=== PATIENT | male | born 1960 | race African-American/Black ===

== ENCOUNTER 2016-07-31 01:48 | Emergency (ER) | payer SELFPAY ==
[2016-07-31] MEDS ORDERED: predniSONE 20 MG TAB ONE (02:11)
--- NOTE | 2016-07-31 02:28 | ERRECORD ---
[facility] EMERGENCY RECORD HPI RASH (02:11 JLOY) CHIEF COMPLAINT: Patient presents for evaluation of pruritis, Patient presents for evaluation of rash, Patient presents for evaluation of Pt with itching rash x1 week. started on his hands and forearms but spread to upper arms, back and chest. No other symptoms. Happened after being in a grassy field but no exposures. HISTORIAN: History provided by patient. LOCATION: Symptoms are generalized. QUALITY: Rash described as itchy, Rash described as macular, Rash described as papular, Rash described as raised, Rash described as red. TIME COURSE: Gradual onset of symptoms, Symptoms are worsening. ASSOCIATED WITH: No associated chills, No associated extremity swelling, No associated fever, No associated oral lesions, No associated pain, No associated shortness of breath, No associated scaling, No associated upper respiratory infection. EXACERBATED BY: Patient's condition exacerbated by nothing. RELIEVED BY: Patient's condition relieved by nothing. ROS (02:12 JLOY) CONSTITUTIONAL: Historian denies chills, denies fever. ENT: Historian denies rhinorrhea, denies sore throat. RESPIRATORY: Historian denies cough, denies shortness of breath. GI: Historian denies nausea, denies vomiting. MUSCULOSKELETAL: Historian denies arthralgias, denies myalgias. SKIN: Historian reports pruritis, reports rash. NEUROLOGIC: Historian denies dizziness, denies headache. PAST MEDICAL HISTORY MEDICAL HISTORY: Flu vaccine not up to date, Tetanus not up to date, Past medical history includes history of diabetes, Type II. (:57 KASA) MALE SURGICAL HISTORY: Patient has no surgical history. (:57 KASA) PSYCHIATRIC HISTORY: No previous psychiatric history. (01:57 KASA) SOCIAL HISTORY: Patient drinks socially, every week, Patient denies drug use, Patient currently uses tobacco, smokes cigarettes, daily, Patient has smoked for 30 years, Patient smokes 1/2 packs per day, Lives at home, with family. (:57 KASA) NOTES: Nursing records reviewed, Agree with nursing records. (02:14 JLOY) KNOWN ALLERGIES No recorded allergies CURRENT MEDICATIONS &a-1R&a+25V*p+0X*i3038O*c202B*c15G*c2P*p-0X&a-25V&a+1R Name: Ryan Bobby : 1960 M55 MedRec: [id number] AcctNum: [id number] Prepared: Brynn Jul 31, 2016 02:23 by Interface Page 1 of 2 pMD [facility] EMERGENCY RECORD No recorded medications VITAL SIGNS (01:52 KASA) VITAL SIGNS: BP: 132/82, Pulse: 109, Resp: 20, Temp: 98.6 (Oral), Pain: 6 (Burning), O2 sat: 96 on Room Air, Time: 07/31/2016 01:52. PHYSICAL EXAM (02:12 JL) CONSTITUTIONAL: Vital signs reviewed, Patient appears non toxic, Patient alert and oriented to person, place and time. EYES: Eye exam included findings of eyelids normal to inspection, Pupils equally round and reactive to light, Conjunctiva normal. ENT: Mouth exam normal, mucous membranes moist. RESPIRATORY CHEST: Respiratory exam included findings of no respiratory distress, Breath sounds clear, No wheezing, No rales, No rhonchi, Chest exam included findings of chest movement symmetrical. CARDIOVASCULAR: Cardiovascular exam included findings of heart rate regular rate and rhythm, Heart sounds normal. NEURO: Mimi coma scale 15, Neuro exam findings include patient oriented to person, place and time, Speech normal. SKIN: Skin exam included findings of skin warm, dry, and normal in color, Pt with thickened red rash, spread in patches on backs of hands and forearms, in papules and linear patterns on shoulders, back, and chest. No drainage. No warmth. PSYCHIATRIC: Normal affect. MEDICATION ADMINISTRATION SUMMARY Drug Name: predniSONE oral, Dose Ordered: 60 mg, Route: Oral, Status: Given, Time: 02:13 07/31/2016, Detailed record available in Medication Service section. PROBLEM LIST No recorded problems DIAGNOSIS (:10 JL) FINAL: PRIMARY: UNS CONTACT DERMATITIS UNS CAUSE. PRESCRIPTION (:10 JL) predniSONE oral: TABLET : 20 mg : ORAL : Quantity: 40 Unit: mg Route: ORAL Schedule: once a day Dispense: 7 DAYS May substitute. Refills: No Refills . NOTES: No Refills. DISPOSITION PATIENT: Disposition Type: Discharge, Disposition: *Discharge Home. (:10 JL) Patient left the department. (02:20 KASA) Miller: MADELAINE=MD Les, Ulisses ROMERO=SHANIQUE Martínez, Haley &a-1R&a+25V*p+0X*z2701B*c202B*c15G*c2P*p-0X&a-25V&a+1R Name: Ryan Bobby : 1960 M55 MedRec: [id number] AcctNum: [id number] Prepared: Brynn Jul 31, 2016 02:23 by Interface Page 2 of 2 pMD MTDD
--- NOTE | 2016-07-31 02:30 | PICIS ---
[facility] EMERGENCY RECORD TRIAGE (SatJul 31, 2016 01:52 KASA) TRIAGE NOTES: Rash on back and arms, started about a week ago and has gotten worse, Benadryl has not helped. (SatJul 31, 2016 01:52 KASA) PATIENT: NAME: Ryan Bobby, AGE: 55, GENDER: male, : Sat1960, TIME OF GREET: SatJul 31, 2016 01:49, PREFERRED LANGUAGE: Pakistani, ETHNICITY: Not or , ECODE BILLING MAP: [facility] ER, SSN: [id number], Zip Code: [address], KG WEIGHT: 92.99, PHONE: , , , PERSON ID: [id number], PCP: Emmanuelle Rose. (SatJul 31, 2016 01:52 KASA) COMPLAINT: RASH ON BACK AND ARMS. (SatJul 31, 2016 01:52 KASA) ADMISSION: URGENCY: 5 [employer], ADMISSION SOURCE: Home, TRANSPORT: CAR, BED: ER -05. (SatJul 31, 2016 01:52 KASA) ASSESSMENT: Assessment: rash to BLE and back, Symptoms began 1 week ago. (01:57 KASA) PAIN: No complaint of pain, Location Back and arms, Pain is constant, Onset was 07/30/2016, No efforts tried to relieve symptoms. (01:57 KASA) SIRS SCORING: Heart Rate 55-109 (0), Temp range 96.8-101.1 (0), respiratory rate 12-24 (0), Mental Status altered: no (0). (01:57 KASA) TRIAGE SCREENING: Patient denies suicidal ideation, Patient denies presence of domestic violence. (01:57 KASA) TREATMENTS IN PROGRESS: Treatments given Prehospital: Benadryl last taken 2 days ago. (01:57 KASA) PROVIDERS: TRIAGE NURSE: Haley Martínez RN. (SatJul 31, 2016 01:52 KASA) VITAL SIGNS: BP 132/82, Pulse 109, Resp 20, Temp 98.6, (Oral), Pain 6, (Burning), O2 Sat 96, on Room Air, Time 07/31/2016 01:52. (01:52 KASA) KNOWN ALLERGIES No recorded allergies CURRENT MEDICATIONS No recorded medications VITAL SIGNS (01:52 KASA) VITAL SIGNS: BP: 132/82, Pulse: 109, Resp: 20, Temp: 98.6 (Oral), Pain: 6 (Burning), O2 sat: 96 on Room Air, Time: 07/31/2016 01:52. NURSING ASSESSMENT: SKIN (01:57 KASA) CONSTITUTIONAL: Patient arrives ambulatory, Gait steady, History obtained from patient, Patient appears, uncomfortable, Patient cooperative, Patient alert, Oriented to person, place and time, Skin warm, Skin dry, Skin normal in color, Mucous membranes pink, Mucous membranes moist, Patient complains of Rash, Rash on back and arms, started about a week ago and has gotten worse, Benadryl has not helped. &a-1R&a+25V*p+0X*c8912L*c202B*c15G*c2P*p-0X&a-25V&a+1R Name: Ryan Bobby Dimple : 1960 M55 MedRec: [id number] AcctNum: [id number] Prepared: SatJul 31, 2016 02:28 by Interface Page 1 of 4 pMD [facility] EMERGENCY RECORD SKIN: Skin assessment findings include skin warm, Skin dry, Skin normal in color, Inspection findings include rash, red, hives, itchy. SAFETY: Side rails up, Cart/Stretcher in lowest position, Call light within reach, Hospital ID band on. NURSING PROCEDURE: DISCHARGE NOTE (02:18 KASA) DISCHARGE: Patient discharged to home, ambulating without assistance, family driving, accompanied by other family member, Summary of Care printed/ provided, Discharge instructions given to patient, Simple or moderate discharge teaching performed, . Educated and provided handout regarding diagnosis of: Contact dermatitis Follow up with PCP in 3-4 days, Prescriptions given and instructions on side effects given, Name of prescription(s) given: Prednisone. BELONGINGS: Belongings and valuables with patient upon arrival to the Emergency Department include:, Belongings and valuables with patient at time of discharge include:, Belongings remain with patient, Valuables remain with patient. MEDICATION ADMINISTRATION SUMMARY Drug Name: predniSONE oral, Dose Ordered: 60 mg, Route: Oral, Status: Given, Time: 02:13 07/31/2016, Detailed record available in Medication Service section. MEDICATION SERVICE (02:13 [facility]) predniSONE oral: Order: predniSONE oral (prednisone) - Dose: 60 mg : Oral Ordered by: Ulisses Saldana MD Entered by: Ulisses Saldana MD Jul 31, 2016 02:10 , Acknowledged by: Haley Martínez RN SatJul 31, 2016 02:12 Documented as given by: Haley Martínez RN Jul 31, 2016 02:13 Patient, Medication, Dose, Route and Time verified prior to administration. Amount given: 60 mg, Site: Medication administered P.O., Correct patient, time, route, dose and medication confirmed prior to administration, Patient advised of actions and side-effects prior to administration, Allergies confirmed and medications reviewed prior to administration, Patient in position of comfort, Side rails up, Cart in lowest position. HPI RASH (02:11 [facility]) CHIEF COMPLAINT: Patient presents for evaluation of pruritis, Patient presents for evaluation of rash, Patient presents for evaluation of Pt with itching rash x1 week. started on his hands and forearms but spread to upper arms, back and chest. No other symptoms. Happened after being in a grassy field but no exposures. HISTORIAN: History provided by patient. &a-1R&a+25V*p+0X*l1724Z*c202B*c15G*c2P*p-0X&a-25V&a+1R Name: Ryan Bobby : 1960 M55 MedRec: [id number] AcctNum: [id number] Prepared: SatJul 31, 2016 02:28 by Interface Page 2 of 4 pMD [facility] EMERGENCY RECORD LOCATION: Symptoms are generalized. QUALITY: Rash described as itchy, Rash described as macular, Rash described as papular, Rash described as raised, Rash described as red. TIME COURSE: Gradual onset of symptoms, Symptoms are worsening. ASSOCIATED WITH: No associated chills, No associated extremity swelling, No associated fever, No associated oral lesions, No associated pain, No associated shortness of breath, No associated scaling, No associated upper respiratory infection. EXACERBATED BY: Patient's condition exacerbated by nothing. RELIEVED BY: Patient's condition relieved by nothing. ROS (02:12 JL) CONSTITUTIONAL: Historian denies chills, denies fever. ENT: Historian denies rhinorrhea, denies sore throat. RESPIRATORY: Historian denies cough, denies shortness of breath. GI: Historian denies nausea, denies vomiting. MUSCULOSKELETAL: Historian denies arthralgias, denies myalgias. SKIN: Historian reports pruritis, reports rash. NEUROLOGIC: Historian denies dizziness, denies headache. PAST MEDICAL HISTORY MEDICAL HISTORY: Flu vaccine not up to date, Tetanus not up to date, Past medical history includes history of diabetes, Type II. (:57 KASA) MALE SURGICAL HISTORY: Patient has no surgical history. (:57 KASA) PSYCHIATRIC HISTORY: No previous psychiatric history. (:57 KASA) SOCIAL HISTORY: Patient drinks socially, every week, Patient denies drug use, Patient currently uses tobacco, smokes cigarettes, daily, Patient has smoked for 30 years, Patient smokes 1/2 packs per day, Lives at home, with family. (:57 KASA) NOTES: Nursing records reviewed, Agree with nursing records. (02:14 JLOY) PHYSICAL EXAM (02:12 JLOY) CONSTITUTIONAL: Vital signs reviewed, Patient appears non toxic, Patient alert and oriented to person, place and time. EYES: Eye exam included findings of eyelids normal to inspection, Pupils equally round and reactive to light, Conjunctiva normal. ENT: Mouth exam normal, mucous membranes moist. RESPIRATORY CHEST: Respiratory exam included findings of no respiratory distress, Breath sounds clear, No wheezing, No rales, No rhonchi, Chest exam included findings of chest movement symmetrical. CARDIOVASCULAR: Cardiovascular exam included findings of heart rate regular rate and rhythm, Heart sounds normal. &a-1R&a+25V*p+0X*x1704V*c202B*c15G*c2P*p-0X&a-25V&a+1R Name: Ryan Bobby : 1960 M55 MedRec: [id number] AcctNum: [id number] Prepared: SatJul 31, 2016 02:28 by Interface Page 3 of 4 pMD [facility] EMERGENCY RECORD NEURO: Mimi coma scale 15, Neuro exam findings include patient oriented to person, place and time, Speech normal. SKIN: Skin exam included findings of skin warm, dry, and normal in color, Pt with thickened red rash, spread in patches on backs of hands and forearms, in papules and linear patterns on shoulders, back, and chest. No drainage. No warmth. PSYCHIATRIC: Normal affect. EVENTS TRANSFER: Triage to Emergency Emergency Room -05. (SatJul 31, 2016 01:52 KASNilesh) Removed from Emergency Emergency Room -05. (02:20 [facility]) PROBLEM LIST No recorded problems DIAGNOSIS (: [facility]) FINAL: PRIMARY: UNS CONTACT DERMATITIS UNS CAUSE. DISPOSITION PATIENT: Disposition Type: Discharge, Disposition: *Discharge Home. (: MADELAINE) Patient left the department. (: HEATHER) INSTRUCTION (:11 MADELAINE) DISCHARGE: CONTACT DERMATITIS. FOLLOWUP: [facility] [place], [address] [place] [address] , , Follow up with Primary Care Physician in 3-4 days. PRESCRIPTION (:10 MADELAINE) predniSONE oral: TABLET : 20 mg : ORAL : Quantity: 40 Unit: mg Route: ORAL Schedule: once a day Dispense: 7 DAYS May substitute. Refills: No Refills . NOTES: No Refills. IMAGING (:22 [facility]) *DISCHARGE INSTRUCTIONS RECEIPT: Image captured from scanner. *SUPPLY CHARGE SHEET: Image captured from scanner. ADMIN (02:14 MADELAINE) DIGITAL SIGNATURE: MD Saldana Joshua. Miller: MADELAINE=MD Les, Ulisses ROMERO=Mauricio RN, Haley &a-1R&a+25V*p+0X*l7604D*c202B*c15G*c2P*p-0X&a-25V&a+1R Name: Ryan Bobby : 1960 M55 MedRec: [id number] AcctNum: [id number] Prepared: SatJul 31, 2016 02:28 by Interface Page 4 of 4 pMD MTDD
== END 2016-07-31 02:18 | disposition home or self-care (01) ==
LOC: NAV ERS 01:48
DX: L25.9 Unspecified contact dermatitis, unspecified cause (principal); E11.9 Type 2 diabetes mellitus without complications; F17.210 Nicotine dependence, cigarettes, uncomplicated
CPT/HCPCS: 99282; J7506

== ENCOUNTER 2016-09-10 10:57 | Emergency (ER) | payer SELFPAY ==
[2016-09-10] MEDS ORDERED: Dexamethasone 20 MG/5 ML VIAL ONE (11:34)
== END 2016-09-10 11:50 | disposition home or self-care (01) ==
LOC: NAV ERS 10:57
DX: B35.4 Tinea corporis (principal); E11.9 Type 2 diabetes mellitus without complications; F17.210 Nicotine dependence, cigarettes, uncomplicated
CPT/HCPCS: 96372; J1100

== ENCOUNTER 2018-03-27 12:18 | Outpatient (CLI) | payer OTHER ==
[2018-03-27 13:42] LABS: Vancomycin, Trough 3.4 ug/mL
[2018-03-27 13:49] LABS: #Basophils 0.1 thou/uL (0.0-0.2); #Eosinphils 0.5 thou/uL (0.0-0.7); #Lymphocytes 1.2 thou/uL (1.20-3.40); #Monocytes 0.4 thou/uL (0.11-0.59); #Neutrophils 3.4 thou/uL (1.40-6.50); %Basophils 0.9 % (0.0-1.0); %Eosinophils 9.4 % (0.0-10.0); %Lymphocytes 21.4 % (21.0-51.0); %Monocytes 7.6 % (0.0-10.0); %Neutrophils 60.6 % (42.0-75.0); ALT (SGPT) 63 U/L (8-55); AST (SGOT) 43 U/L (5-34); Albumin 3.6 g/dL (3.5-5.0); Alkaline Phosphatase 114 U/L (40-150); Anion Gap 15 mmol/L (10-20); BUN (Urea Nitrogen) 22 mg/dL (8.4-25.7); Bilirubin, Total 0.4 mg/dL (0.2-1.2); Calc. Creatinine Clearance 0 mL/min (70-130); Calcium 9.7 mg/dL (7.8-10.44); Carbon Dioxide 23 mmol/L (22-29); Chloride 104 mmol/L (98-107); Estimated GFR-MDRD 71; Globulin 4.6 g/dL (2.4-3.5); Glucose 188 mg/dL (70-105); Hemoglobin 10.2 g/dL (14.0-18.0); Mean Corpuscular HGB CONC 31.4 g/dL (32.0-36.0); Mean Corpuscular Hemoglobin 26.9 pg (27.0-31.0); Mean Corpuscular Volume 85.6 fL (78.0-98.0); Platelet Count 165 thou/uL (130-400); Potassium 4.3 mmol/L (3.5-5.1); Protein, Total 8.2 g/dL (6.0-8.3); RBC Distribution Width 15.9 % (11.5-14.5); Red Blood Cell (RBC) Count 3.78 mill/uL (4.70-6.10); Sodium 138 mmol/L (136-145); White Blood Cell (WBC) Count 5.6 thou/uL (4.8-10.8)
[2018-03-27 14:04] LABS: Follow-up Chemistry Comp? YES; Follow-up Hematology Comp? YES; Follow-up Result - Chemistry REPORT FAXED; Follow-up Result - Hematology REPORT FAXED
[2018-03-27 17:33] LABS: CRP (Inflammatory) 0.56 mg/dL (= or < 0.5)
== END 2018-03-27 12:19 | disposition home or self-care (01) ==
LOC: NAV LABSP 12:18
PROVIDERS: ATTEND Internal Medicine Infectious Disease
DX: M00.061 Staphylococcal arthritis, right knee (principal)
CPT/HCPCS: 80053; 80202; 85025; 86140